=== PATIENT | male | born 1990 | race Caucasian/White ===

== ENCOUNTER 2018-02-14 15:05 | Emergency (ER) | payer MEDICAID ==
[~2018-02-14] VITALS: Ht 165.1 cm; Wt 68.0 kg
[~2018-02-14 15:05] MED LIST: AMOXICILLIN500 MG PO; IBUPROFEN600 MG PO; TRAMADOL HCL50 MG PO
== END 2018-02-14 16:51 | disposition home or self-care (01) ==
LOC: ED 15:05
DX: A64 Unspecified sexually transmitted disease (principal); F17.200 Nicotine dependence, unspecified, uncomplicated; Z88.8 Allergy status to other drugs, medicaments and biological substances
CPT/HCPCS: 86780; 87491; 87591; 96372; 99283; J0561; J0696

== ENCOUNTER 2019-08-09 14:25 | Emergency (ER) | payer SELFPAY ==
[~2019-08-09] VITALS: Ht 165.1 cm; Wt 72.1 kg
--- OUTSIDE RECORDS SUMMARY | 2019-08-09 14:28 | XMS ---
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 Wagner has no Care Guidelines for this patient. Nan VISIT COUNT (12 MO.) 1 [facility] TOTAL 1 NOTE: Visits indicate total known visits. ED/C VISIT TRACKING (12 MO.) 08/09/2019 14:26 [facility] [place] TYPE: Emergency COMPLAINT: - DENTAL PROBLEM INPATIENT VISIT TRACKING (12 MO.) No inpatient visits to display in this time frame [id number]
== END 2019-08-09 15:31 | disposition home or self-care (01) ==
LOC: ED 14:25
DX: K08.89 Other specified disorders of teeth and supporting structures (principal)

== ENCOUNTER 2022-04-03 19:12 | Emergency (ER) | payer SELFPAY ==
[~2022-04-03] VITALS: Ht 165.1 cm; Wt 70.3 kg
--- OUTSIDE RECORDS SUMMARY | 2022-04-03 19:18 | XMS ---
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 Wagner has no Care Guidelines for this patient. Care History Medical/Surgical 08/10/2019 [facility] - [facility] IS UNABLE TO CONTACT PATIENT-VOICEMAIL BOX IS NOT SET UP. - PATIENT DOES NOT HAVE INSURANCE AND OR PCP. - PLEASE PROVIDE PATIENT WITH [facility] CONTACT INFORMATION [phone]- MATHEW. ELa VISIT COUNT (12 MO.) 1 [facility] TOTAL 1 NOTE: Visits indicate total known visits. ED/UCC VISIT TRACKING (12 MO.) 04/03/2022 19:[address] [facility] [place] TYPE: Emergency COMPLAINT: - FOOT INJURY INPATIENT VISIT TRACKING (12 MO.) No inpatient visits to display in this time frame [id number]
[2022-04-03] MEDS ORDERED: HYDROCODON-ACE1 EA10 PO (22:03)
[2022-04-03] MEDS ORDERED: CRUTCHES XX (22:06)
== END 2022-04-03 22:20 | disposition home or self-care (01) ==
LOC: ED 19:12
DX: S92.354A Nondisplaced fracture of fifth metatarsal bone, right foot, initial encounter for closed fracture (principal); X50.9XXA Other and unspecified overexertion or strenuous movements or postures, initial encounter; F17.200 Nicotine dependence, unspecified, uncomplicated; Z88.8 Allergy status to other drugs, medicaments and biological substances
CPT/HCPCS: 73610; 73630; 99283-25; A9270

== ENCOUNTER 2024-04-16 06:21 | Emergency (ER) | payer OTHER ==
[~2024-04-16] VITALS: Ht 165.1 cm; Wt 73.5 kg
[~2024-04-16 06:21] MED LIST changes: +CRUTCHES XX; +HYDROCODON-ACE1 EA10 PO
[2024-04-16] MEDS ORDERED: CIPRO500 MG PO (06:40)
[2024-04-16] MEDS ORDERED: ACETAMINOPHEN 500 MG TAB PO ONE (06:45)
[2024-04-16] MEDS ORDERED: CIPROFLOXACIN 500 MG TAB PO ONE (06:45)
[2024-04-16 06:54] VITALS: BP 132/81
== END 2024-04-16 06:50 | disposition home or self-care (01) ==
LOC: ED 06:21
DX: H61.002 Unspecified perichondritis of left external ear (principal); H61.032 Chondritis of left external ear; F17.200 Nicotine dependence, unspecified, uncomplicated; Z88.5 Allergy status to narcotic agent
CPT/HCPCS: 99282; A9270

== ENCOUNTER 2025-01-01 12:06 | Emergency (ER) | payer OTHER ==
[~2025-01-01] VITALS: Ht 165.1 cm; Wt 72.6 kg
[~2025-01-01 12:06] MED LIST changes: +CIPRO500 MG PO
[2025-01-01] MEDS ORDERED: IBUPROFEN 600 MG TAB PO ONE (15:45)
[2025-01-01 15:48] VITALS: BP 124/80
== END 2025-01-01 16:05 | disposition home or self-care (01) ==
LOC: ED 12:06
DX: S43.101A Unspecified dislocation of right acromioclavicular joint, initial encounter (principal); S00.11XA Contusion of right eyelid and periocular area, initial encounter; Z87.81 Personal history of (healed) traumatic fracture; Z88.8 Allergy status to other drugs, medicaments and biological substances; F17.200 Nicotine dependence, unspecified, uncomplicated; Y04.0XXA Assault by unarmed brawl or fight, initial encounter
CPT/HCPCS: 70450; 70486; 73030; 99284-25; A9270

== ENCOUNTER 2025-07-07 12:46 | Emergency (ER) | payer OTHER ==
[~2025-07-07] VITALS: Ht 165.1 cm; Wt 67.0 kg
--- OUTSIDE RECORDS SUMMARY | ~2025-07-07 | XMS | Continuity of Care Document ---
Demographics + + + | Address | [address] | | | [place] [address] | + + + | Preferred Language | Unknown | + + + | Marital Status | | + + + | Buddhism Affiliation | Unknown | + + + | Race | White | + + + | Ethnic Group | Not or | + + + Author + + + | Author | [place] | + + + | Organization | [place] | + + + | Address | [address] | | | [place] [address] | + + + | Phone | | + + + Care Team Providers + + + + | Care Valuer Name | Role | Phone | + + + + Unavailable | Unavailable | + + + + Unavailable | Unavailable | + + + + Allergies and Intolerances + + + + + + | date | description | facility | reaction | severity | + + + + + + | 2025-05-18 | Methadone | [facility] - | Vomiting | (no severity) | | 00:00 | | [facility] | | | + + + + + + | 2025-05-18 | Methadone | [facility] - | Vomiting | (no severity) | | 00:00 | | [facility] | | | + + + + + + | 2025-05-18 | Methadone | [facility] - | Vomiting | (no severity) | | 00:00 | | [facility] | | | + + + + + + Encounters No information. Functional Status No information. Immunizations No information. Medications No information. Problems + + + + | date | description | facility | + + + + | 2025-05-18 00:00 | Opioid withdrawal | [facility] | | | | [facility] | + + + + Procedures No information. Results/Labs +--------+--------+ +---------+--------+---------+ | test | date | facility | value | unit | notes | +--------+--------+ +---------+--------+---------+ + + | Result panel 1 | + + + + + +--------+ + + | WBC # Bld | 2025-05-18 | | 8.29 | (missing) | (missing) | | Auto | 11:20:07 | [facility] | | | | + + + +--------+ + + + + | Result panel 2 | + + + + + +--------+ + + | Lymphocytes | 2025-05-18 | | 12.2 | (missing) | (missing) | | NFr Bld | 11:20:07 | [facility] | | | | | Auto | [facility] | | | | + + + +--------+ + + + + | Result panel 3 | + + + + + +-------+ + + | Monocytes | 2025-05-18 | | 4.1 | (missing) | (missing) | | NFr Bld Auto | 11:20:07 | [facility] | | | | + + + +-------+ + + + + | Result panel 4 | + + + + + +-------+ + + | Eosinophil | 2025-05-18 | | 0.2 | (missing) | (missing) | | NFr Bld Auto | 11:20:07 | [facility] | | | | + + + +-------+ + + + + | Result panel 5 | + + + + + +-------+ + + | Basophils | 2025-05-18 | | 0.1 | (missing) | (missing) | | NFr Bld Auto | 11:20:07 | [facility] | | | | + + + +-------+ + + + + | Result panel 6 | + + + + + +-------+---------+ + | Glucose | 2025-05-18 | | 104 | mg/dL | (missing) | | SerPl-mCnc | 11:20:07 | [facility] | | | | + + + +-------+---------+ + + + | Result panel 7 | + + + + + +------+---------+ + | BUN | 2025-05-18 | | 14 | mg/dL | (missing) | | SerPl-mCnc | 11:20:07 | [facility] | | | | + + + +------+---------+ + + + | Result panel 8 | + + + + + +--------+---------+ + | Creat | 2025-05-18 | | 0.77 | mg/dL | (missing) | | SerPl-mCnc | 11:20:07 | [facility] | | | | + + + +--------+---------+ + + + | Result panel 9 | + + + + + +-------+ + + | eGFRcr | 2025-05-18 | | 119 | (missing) | (missing) | | SerPlBld | 11:20:07 | [facility] | | | | | CKD-EPI 2020 | | - | | | | | | | [facility] | | | | + + + +-------+ + + + + | Result panel 10 | + + + + + +---------+ + + | BUN/Creat | 2025-05-18 | | 18.18 | (missing) | (missing) | | SerPl | 11:20:07 | [facility] | | | | + + + +---------+ + + + + | Result panel 11 | + + + + + +-------+ + + | Sodium | 2025-05-18 | | 141 | (missing) | (missing) | | SerPl-sCnc | 11:20:07 | [facility] | | | | + + + +-------+ + + + + | Result panel 12 | + + + + + +--------+ + + | RBC # Bld | 2025-05-18 | | 3.80 | (missing) | (missing) | | Auto | 11:20:07 | [facility] | | | | + + + +--------+ + + + + | Result panel 13 | + + + + + +-------+ + + | Potassium | 2025-05-18 | | 3.6 | (missing) | (missing) | | SerPl-sCnc | 11:20:07 | [facility] | | | | + + + +-------+ + + + + | Result panel 14 | + + + + + +-------+ + + | Chloride | 2025-05-18 | | 108 | (missing) | (missing) | | SerPl-sCnc | 11:20:07 | [facility] | | | | + + + +-------+ + + + + | Result panel 15 | + + + + + +------+ + + | CO2 | 2025-05-18 | | 20 | (missing) | (missing) | | SerPl-sCnc | 11:20:07 | [facility] | | | | + + + +------+ + + + + | Result panel 16 | + + + + + +--------+ + + | Anion Gap | 2025-05-18 | | 16.6 | (missing) | (missing) | | SerPl | 11:20:07 | [facility] | | | | | Calculated.4 | [facility] | | | | + + + +--------+ + + + + | Result panel 17 | + + + + + +-------+---------+ + | Calcium | 2025-05-18 | | 8.4 | mg/dL | (missing) | | SerPl-mCnc | 11:20:07 | [facility] | | | | + + + +-------+---------+ + + + | Result panel 18 | + + + + + +--------+ + + | Hgb | 2025-05-18 | | 12.4 | (missing) | (missing) | | Bld-nc | 11:20:07 | [facility] | | | | + + + +--------+ + + + + | Result panel 19 | + + + + + +--------+ + + | Hct VFr.DF | 2025-05-18 | | 35.8 | (missing) | (missing) | | Bld Auto | 11::07 | [facility] | | | | + + + +--------+ + + + + | Result panel 20 | + + + + + +--------+ + + | RBC Auto | 2025-05-18 | | 94.2 | (missing) | (missing) | | | 11:20:07 | [facility] | | | | + + + +--------+ + + + + | Result panel 21 | + + + + + +--------+ + + | MCH RBC Qn | 2025-05-18 | | 32.6 | (missing) | (missing) | | Auto | 11:20:07 | [facility] | | | | + + + +--------+ + + + + | Result panel 22 | + + + + + +--------+ + + | MCHC RBC | 2025-05-18 | | 34.6 | (missing) | (missing) | | Auto-EntMCnc | 11:20:07 | [facility] | | | | + + + +--------+ + + + + | Result panel 23 | + + + + + +-------+ + + | Platelet # | 2025-05-18 | | 241 | (missing) | (missing) | | Bld Auto | 11:20:07 | [facility] | | | | + + + +-------+ + + + + | Result panel 24 | + + + + + +--------+ + + | Neutrophils | 2025-05-18 | | 83.0 | (missing) | (missing) | | NFr Bld | 11:20:07 | [facility] | | | | | Auto | [facility] | | | | + + + +--------+ + + Social History +--------+ + + | date | description | facility | +--------+ + + Vital Signs + + + +---------+ | date | measurement | value | units | + + + +---------+ | 2025-05-18 00:00 | BMI | 26.8 | kg/m2 | + + + +---------+ | 2025-05-18 00:00 | BP_diastolic | 93 | mmHg | + + + +---------+ | 2025-05-18 00:00 | BP_systolic | 131 | mmHg | + + + +---------+ | 2025-05-18 00:00 | heart_rate | 76 | /min | + + + +---------+ | 2025-05-18 00:00 | height_metric | 165.1 | cm | + + + +---------+ | 2025-05-18 00:00 | height_standard | 65 | in | + + + +---------+ | 2025-05-18 00:00 | o2_saturation | 100 | % | + + + +---------+ | 2025-05-18 00:00 | respiration_rate | 24 | /min | + + + +---------+ | 2025-05-18 00:00 | | 99.4 | F | | | temperature_standar | | | | | d | | | + + + +---------+ | 2025-05-18 00:00 | weight_metric | 73 | kg | + + + +---------+ | 2025-05-18 00:00 | weight_standard | 160.937 | lb | + + + +---------+"
[2025-07-07] MEDS ORDERED: BUPRENORPHINE-1 EACH SL (12:59)
[2025-07-07] MEDS ORDERED: FLUORESCEIN SOD 1 EA STRP OD ONE (13:00)
[2025-07-07] MEDS ORDERED: TETRACAINE HCL 0.5% 4 ML BTL OS PRN (13:15)
[2025-07-07] MEDS ORDERED: POLYMYXIN B-TMP10 ML OPTH (13:20)
[2025-07-07 13:31] VITALS: BP 131/82
[2025-07-07] MEDS ORDERED: TRIMETHOPRIM OS SCH (15:00)
[2025-07-07] MEDS ORDERED: POLYMYXIN OS SCH (15:00)
== END 2025-07-07 13:31 | disposition home or self-care (01) ==
LOC: ED 12:46
DX: H10.9 Unspecified conjunctivitis (principal); F17.200 Nicotine dependence, unspecified, uncomplicated; Z79.899 Other long term (current) drug therapy
CPT/HCPCS: 99282